=== PATIENT | female | born 1965 | race Hispanic/Latino ===

== ENCOUNTER 2024-09-26 16:02 | Emergency (ER) | payer OTHER ==
[2024-09-26] MEDS ORDERED: NA CHLORIDE 0.9% 1,000 ML ONE (16:05)
[2024-09-26 17:12] LABS: Absolute Lymphocytes (CBC) 1.4 K/uL (0.7-4.9); Hematocrit 38.1 % (36.0-45.0); Hemoglobin 12.9 g/dL (12.0-15.0); MCH 29.6 pg (27.0-35.0); MCHC 33.8 g/dL (32.0-36.0); MCV 87.6 fL (80-100); MPV 8.9 fL (7.6-11.3); Nucleated RBC Absolute Count 0.0 (0-0); Nucleated Red Blood Cells % 0.0 % (0-0); RBC Red Blood Cell Count 4.35 M/uL (3.86-4.86); White Blood Count 5.70 thou/uL (4.3-10.9)
--- NOTE | 2024-09-26 17:18 | RAD REPORT ---
Procedure: Chest Single View HISTORY: Chest pain COMPARISON: none FINDINGS: Mild bilateral interstitial lung opacities. No significant pleural effusion noted. The heart is probably borderline enlarged. IMPRESSION: Mild bilateral interstitial opacities may indicate pneumonitis or atypical pneumonia.
[2024-09-26 17:34] LABS: Influenza A Ag Negative; Influenza B Ag Negative; SARS-CoV-2 Antigen Rapid Res Negative (Negative)
[2024-09-26 17:39] LABS: PT Prothrombin Time 11.7 SECONDS (10-13.0); Protime INR 1.04
[2024-09-26 17:57] LABS: ALT/SGPT 31 U/L (13-56); AST/SGOT 16 U/L (15-37); Albumin 3.7 g/dL (3.4-5.0); Albumin/Globulin Ratio 1.2 (1.1-1.8); Alkaline Phosphatase 104 U/L (45-117); Anion Gap 7.8 mEq/L (5.0-15.0); BUN Blood Urea Nitrogen 21 mg/dL (7-18); Globulin 3.1 g/dL (2.3-3.5); Glucose Level 97 mg/dL (74-106); Magnesium 2.3 mg/dL (1.6-2.4); NT PRO-BNP 206 pg/mL (<125); Potassium 3.8 mEq/L (3.5-5.1); Thyroid Stimulating Hormone 1.600 uIU/mL (0.358-3.740); Troponin High Sensitivity 20.5 pg/mL (<58.9)
[2024-09-26 17:58] LABS: Bilirubin Indirect, Calculated 0.1 mg/dL (0.2-0.8)
--- NOTE | 2024-09-26 18:05 | ER ---
Nurse's Notes [facility] Name: Marti Leal Age: 59 yrs Sex: Female : 1965 Arrival Date: 09/26/2024 Time: 16:02 Bed 17 Private MD: Diagnosis: Pneumonia, unspecified organism Presentation: 09/26 16:07 Chief complaint: EMS states: Toned out for feeling off and short of breath after taking jl7 vitamins that she normally takes; denies pain. Coronavirus screen: At this time, the client does not indicate any symptoms associated with coronavirus-19. Ebola Screen: No symptoms or risks identified at this time. Initial Sepsis Screen: Does the patient meet any 2 criteria? No. Patient's initial sepsis screen is negative. Does the patient have a suspected source of infection? No. Patient's initial sepsis screen is negative. Risk Assessment: Do you want to hurt yourself or someone else? Patient reports no desire to harm self or others. Onset of symptoms is unknown. Care prior to arrival: IV initiated. 20 GA, in the left antecubital area, Glucose check: 130. 16:07 Method Of Arrival: Ambulatory jl7 16:07 Acuity: ELIN 3 jl7 Triage Assessment: 16:09 General: Appears in no apparent distress. uncomfortable, Behavior is calm, cooperative, jl7 appropriate for age. Pain: Denies pain. Neuro: [place] Agitation-Sedation Scale (RASS): 0 - Alert and Calm Level of Consciousness is awake, alert, obeys commands, Oriented to person, place, time, situation. Cardiovascular: Denies chest pain, Patient's skin is warm and dry. Respiratory: Airway is patent Respiratory effort is even, unlabored, Respiratory pattern is regular, symmetrical. Derm: Skin is pink, warm \T\ dry. Historical: - Allergies: 16:09 No Known Allergies; jl7 - Home Meds: 16:09 None [Active]; jl7 - PMHx: 16:09 Anxiety; jl7 - PSHx: 16:09 section; jl7 - Immunization history:: Adult Immunizations unknown. - Infectious Disease History:: Denies. - Social history:: Smoking status: Patient denies any tobacco usage or history of. Screenin:54 [facility] ED Fall Risk Assessment (Adult) History of falling in the last 3 months, jl7 including since admission No falls in past 3 months (0 pts) Confusion or Disorientation No (0 pts) Intoxicated or Sedated No (0 pts) Impaired Gait No (0 pts) Mobility Assist Device Used No (0 pt) Altered Elimination No (0 pt) Score/Fall Risk Level 0 - 2 = Low Risk Oriented to surroundings, Maintained a safe environment. Abuse screen: Denies threats or abuse. Denies injuries from another. Nutritional screening: No deficits noted. Tuberculosis screening: No symptoms or risk factors identified. Assessment: 17:20 Reassessment: Patient appears in no apparent distress at this time. Patient and/or jl7 family updated on plan of care and expected duration. Pain level reassessed. Patient is alert, oriented x 3, equal unlabored respirations, skin warm/dry/pink. Patient states feeling better. Patient states symptoms have improved. 18:20 Reassessment: Patient appears in no apparent distress at this time. No changes from jl7 previously documented assessment. Patient and/or family updated on plan of care and expected duration. Pain level reassessed. Patient is alert, oriented x 3, equal unlabored respirations, skin warm/dry/pink. Vital Signs: 16:07 BP 125 / 84; Pulse 60; Resp 15; Temp 97.8; Pulse Ox 99% ; Pain 0/10; jl7 17:30 BP 115 / 68; Pulse 52; Resp 15; Pulse Ox 100% ; jl7 18:41 BP 126 / 61; Pulse 50; Resp 15; Pulse Ox 100% ; jl7 16:07 Pain Scale: Adult jl7 ED Course: 16:06 Patient arrived in ED. sb4 16:06 [facility] sb[facility] 16:06 Claudy Harris MD is Attending Physician. sb4 16:07 Timbo Wyatt, DESHAWN is Primary Nurse. jl7 16:09 Triage completed. jl7 16:09 Arm band placed on right wrist. jl7 16:10 No provider procedures requiring assistance completed. Maintain EMS IV. Dressing jl7 intact. Good blood return noted. Site clean \T\ dry. Gauge \T\ site: 20 left ac. Flushed with 10 mL NS 16:36 EKG done, by ED staff, reviewed by Kelly Bailey PA-C. jl7 16:54 Patient has correct armband on for positive identification. Provided Education on: use jl7 of call paredes. Client placed on continuous cardiac and pulse oximetry monitoring. NIBP monitoring applied. shelter monitor on. Pulse ox on. 17:02 XRAY Chest (1 view) In Process Unspecified. EDMS Administered Medications: 16:53 Drug: NS 0.9% IV 1000 ml IV at 1 bolus Per protocol; to be given as a bolus over 60 jl7 minutes Route: IV; Rate: 1 bolus; Site: left antecubital; 18:42 Follow up: Response: No adverse reaction; IV Status: Completed infusion; IV Intake: jl7 1000ml 18:04 CANCELLED (Physician Discretion): [id number] mg IVPB once over 1 hrs; (mix in 250 sb4 mL NS) 18:15 Drug: Rocephin IV 1 grams IV at calculated rate once; Given slow IV push per pharmacy jl7 instructions Route: IV; Rate: calculated rate; Site: left antecubital; 18:42 Follow up: Response: No adverse reaction; IV Status: Completed infusion jl7 Medication: 16:54 VIS not applicable for this client. jl7 Intake: 18:42 IV: 1000ml; Total: 1000ml. jl7 Outcome: 17:30 Discharged to home ambulatory, jl7 17:30 Condition: stable 17:30 Discharge instructions given to patient, family, Instructed on discharge instructions, follow up and referral plans. medication usage, Demonstrated understanding of instructions, follow-up care, medications, Prescriptions given X 2, 18:05 Discharge ordered by MD. [email or web address] 18:43 Patient left the ED. jl7 Signatures: Dispatcher [employer] Timbo Orozco RN RN jl7 Kelly Bailey PA-C PA-C sb4
--- NOTE | 2024-09-26 18:05 | EDPHYS ---
Physician Documentation [facility] Name: Marti Leal Age: 59 yrs Sex: Female : 1965 Arrival Date: 09/26/2024 Time: 16:02 Bed 17 Private MD: ED Physician Claudy Harris HPI: 09/26 16:08 This 59 yrs old Female presents to ER via Unassigned with complaints of sb4 Doesn't Feel Right. 16:14 Patient states that she is not feeling right, her stomach feels strange. States that sb4 she took her vitamins today all at once instead of separately. She is not sure if that is what caught is causing her symptoms or not. Denies any chest pain, dizziness, shortness of breath. Does report a history of anxiety. Denies any hypertension or diabetes but does not have regular medical care. Historical: - Allergies: 16:09 No Known Allergies; jl7 - Home Meds: 16:09 None [Active]; jl7 - PMHx: 16:09 Anxiety; jl7 - PSHx: 16:09 section; jl7 - Immunization history:: Adult Immunizations unknown. - Infectious Disease History:: Denies. - Social history:: Smoking status: Patient denies any tobacco usage or history of. ROS: 16:14 Constitutional: Negative for fever, chills, and weight loss, sb4 16:14 All other systems are negative, Exam: 16:21 Head/Face: Normocephalic, atraumatic. Eyes: Extra-ocular motions intact. Periorbital sb4 areas with no swelling, redness, or edema. ENT: Mucous membranes moist. Cardiovascular: Regular rate and rhythm with a normal S1 and S2. Respiratory: No increased work of breathing, no retractions or nasal flaring. Abdomen/GI: Soft, non-tender, no distension. 16:21 Constitutional: The patient appears alert, awake, anxious, 16:21 Skin: Appearance: Color: pink, flushed, Vital Signs: 16:07 BP 125 / 84; Pulse 60; Resp 15; Temp 97.8; Pulse Ox 99% ; Pain 0/10; jl7 17:30 BP 115 / 68; Pulse 52; Resp 15; Pulse Ox 100% ; jl7 18:41 BP 126 / 61; Pulse 50; Resp 15; Pulse Ox 100% ; jl7 16:07 Pain Scale: Adult jl7 MDM: 16:06 Medical Screening Exam initiated sb4 16:28 Differential diagnosis: ACS, ASHLEY, electrolyte abnormality, cardiac arrhythmia, anxiety, sb4 dehydration. 18:07 Data reviewed: vital signs, nurses notes, EMS record, lab test result(s), EKG, sb4 radiologic studies, and as a result, I will discharge patient. Consideration of Admission/Observation Escalation of care including admission/observation considered. Historians other than the Patient: Daughter/Son: son and daughter. Counseling: I had a detailed discussion with the patient and/or guardian regarding the historical points, exam findings, and any diagnostic results supporting the discharge/admit diagnosis, lab results, radiology results, the need for outpatient follow up, for definitive care, to return to the emergency department if symptoms worsen or persist or if there are any questions or concerns that arise at home. Special discussion: I discussed with the patient/guardian in detail that at this point there is no indication for admission to the hospital. It is understood, however, that if the symptoms persist or worsen the patient needs to return immediately for re-evaluation. 09/26 16:07 Order name: Basic Metabolic Panel; Complete Time: 17:59 sb4 09/26 16:07 Order name: CBC with Diff; Complete Time: 17:23 sb4 09/26 16:07 Order name: LFT's; Complete Time: 17:59 sb4 09/26 16:07 Order name: Magnesium; Complete Time: 17:59 sb4 09/26 16:07 Order name: NT PRO-BNP; Complete Time: 17:59 sb4 09/26 16:07 Order name: PT-INR; Complete Time: 17:41 sb4 09/26 16:07 Order name: Troponin HS; Complete Time: 17:59 sb4 09/26 16:08 Order name: TSH; Complete Time: 17:59 sb4 09/26 16:08 Order name: COVID-19 Ag + Flu A+B Ag; Complete Time: 17:36 sb4 09/26 16:07 Order name: XRAY Chest (1 view); Complete Time: 17:23 sb4 09/26 16:07 Order name: Cardiac monitoring; Complete Time: 16:35 sb4 09/26 16:07 Order name: EKG - Nurse/Tech; Complete Time: 16:35 sb4 08 16:07 Order name: IV Saline Lock; Complete Time: 16:35 sb4 08 16:07 Order name: Labs collected and sent; Complete Time: 16:36 sb4 08 16:07 Order name: O2 Per Protocol; Complete Time: 16:36 sb4 08 16:07 Order name: O2 Sat Monitoring; Complete Time: 16:36 sb4 EC:34 Rate is 55 beats/min. Rhythm is regular, Normal Sinus Rhythm. Left axis deviation sb4 noted. WA interval is normal at 168 msec. QRS interval is normal at 94 msec. QT interval is normal at 412 msec. No Q waves. T waves are Normal. No ST changes noted. Clinical impression: No evidence of ischemia. Interpreted by me. Reviewed by me. Administered Medications: 16:53 Drug: NS 0.9% IV 1000 ml IV at 1 bolus Per protocol; to be given as a bolus over 60 jl7 minutes Route: IV; Rate: 1 bolus; Site: left antecubital; 18:42 Follow up: Response: No adverse reaction; IV Status: Completed infusion; IV Intake: jl7 1000ml 18:04 CANCELLED (Physician Discretion): [id number] mg IVPB once over 1 hrs; (mix in 250 sb4 mL NS) 18:15 Drug: Rocephin IV 1 grams IV at calculated rate once; Given slow IV push per pharmacy jl7 instructions Route: IV; Rate: calculated rate; Site: left antecubital; 18:42 Follow up: Response: No adverse reaction; IV Status: Completed infusion jl7 Disposition Summary: 09/26/24 18:05 Discharge Ordered Notes: Location: Home sb4 Problem: new sb4 Symptoms: have improved sb4 Condition: Stable sb4 Diagnosis - Pneumonia, unspecified organism sb4 Followup: sb4 - With: Emergency Department - When: As needed - Reason: Fever > 102 F, Trouble breathing, Worsening of condition Discharge Instructions: - Discharge Summary Sheet sb4 - Community-Acquired Pneumonia, Adult sb4 Forms: - Antibiotic Education sb4 - Patient Portal Instructions sb4 - Leadership Thank You Letter sb4 Prescriptions: - cefdinir 300 mg Oral capsule - take 1 capsule ORAL route every 12 hours for 7 days; 14 capsule; Refills: 0, sb4 Product Selection Permitted - Zithromax Z-Felipe 250 mg Oral Tablet - take 1 tablet ORAL route as directed for 5 days Day 1 - take two (2) tablets sb4 one time. Day 2, 3, 4 , 5 take one (1) tablet once daily.; 6 tablet; Refills: 0, Product Selection Permitted Signatures: Dispatcher [employer] Timbo Orozco RN RN jl7 Kelly Bailey PA-C PAJulia sb4 Corrections: (The following items were deleted from the chart) 18:04 18:00 AZITHromycin IVPB 500 mg IVPB once over 1 hrs; (mix in 250 mL NS) ordered. sb4 sb4
[2024-09-26] MEDS ORDERED: NA CHLORIDE 0.9% 100 ML ONE (18:07)
[2024-09-26] MEDS ORDERED: CEFTRIAXONE 1000 MG/VIAL ONE (18:07)
[2024-09-27 01:55] VITALS: TEMP 97.8
[2024-09-27 01:57] VITALS: BP 126/61; O2SAT 100
== END 2024-09-26 18:43 | disposition home or self-care (01) ==
LOC: ER 16:02
DX: J18.9 Pneumonia, unspecified organism (principal); Z11.52 Encounter for screening for COVID-19
CPT/HCPCS: 96365; 96361; 93005; 85025; 80048; 36415; 83735; 85610; 80076; 84443; 84484; 83880; 71045; 99285; 87428; J7030; J0696